=== PATIENT | female | born 1995 | race Caucasian/White ===

== ENCOUNTER 2018-08-15 18:03 | Emergency (ER) | payer BC ==
--- NOTE | 2018-08-15 19:27 | ER ---
Nurse's Notes [facility] Name: Adrianna Lew Age: 22 yrs Sex: Female : 1995 Arrival Date: 08/15/2018 Time: 18:05 Bed Treatment Private MD: Ray Farnsworth Diagnosis: Dysuria Presentation: 08/15 18:22 Presenting complaint: Urinary frequency, burning with urination, and suprapubic pain x hb 2 days. Transition of care: patient was not received from another setting of care. Onset of symptoms was August 14, 2018. Risk Assessment: Do you want to hurt yourself or someone else? Patient reports no desire to harm self or others. Care prior to arrival: None. 18:22 Method Of Arrival: Ambulatory hb 18:22 Acuity: DEEPAK 4 hb 19:42 Initial Sepsis Screen: Does the patient meet any 2 criteria? No. Patient's initial ak1 sepsis screen is negative. Does the patient have a suspected source of infection? No. Patient's initial sepsis screen is negative. Triage Assessment: 19:41 General: Appears in no apparent distress. Behavior is calm, cooperative. Pain: ak1 Complains of pain in burning with urination. EENT: No signs and/or symptoms were reported regarding the EENT system. Neuro: No deficits noted. Cardiovascular: No deficits noted. Respiratory: No deficits noted. GI: No signs and/or symptoms were reported involving the gastrointestinal system. : Reports burning with urination, urinary frequency. Derm: No signs and/or symptoms reported regarding the dermatologic system. Musculoskeletal: No signs and/or symptoms reported regarding the musculoskeletal system. 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 - Social history:: Smoking status: Patient/guardian denies using tobacco. - Ebola Screening: : No symptoms or risks identified at this time. Screenin:41 Abuse screen: Denies threats or abuse. Denies injuries from another. Nutritional ak1 screening: No deficits noted. Tuberculosis screening: No symptoms or risk factors identified. Fall Risk None identified. Vital Signs: 18:23 BP 142 / 85; Pulse 77; Resp 16; Temp 98.5; Pulse Ox 100% on R/A; Pain 8/10; hb ED Course: 18:05 Patient arrived in ED. as 18:05 Ray Farnsworth MD is Private Physician. as 18:07 Dorothea Wadsworth FNP-C is [facility]. snw 18:08 Flako Temple MD is Attending Physician. snw 18:23 Triage completed. hb 18:23 Arm band placed on. hb 19:24 Vane Sorenson, RN is Primary Nurse. ak1 19:24 Urine Culture Sent. ak1 19:24 Urine Microscopic Only Sent. ak1 19:26 Akil Coelho MD is Referral Physician. snw 19:42 Patient has correct armband on for positive identification. Call light in reach. Side ak1 rails up X 1. 19:42 No provider procedures requiring assistance completed. Patient did not have IV access ak1 during this emergency room visit. Administered Medications: No medications were administered Outcome: 19:26 Discharge ordered by MD. snw 19:42 Discharged to home ambulatory. ak1 19:42 Condition: good 19:42 Discharge instructions given to patient, Instructed on discharge instructions, follow up and referral plans. no drinking with medication, no driving heavy equipment, medication usage, safe sex practices, control, Demonstrated understanding of instructions, follow-up care, medications, Prescriptions given X 3. 19:43 Patient left the ED. ak1 Addendum: 08/18/2018 07:31 Addendum: Culture Results: Positive urine culture. No further action required. Bacteria s s sensitive to prescribed antibiotic. Signatures: Dorothea Wadsworth FNP-C HEAD OF HUMAN RESOURCES-[facility] Gifty Doe Shelby, RN RN Vane Sorenson, MAURI RN ak1 Breonna Bergman RN RN
--- NOTE | 2018-08-15 19:27 | EDPHYS ---
Physician Documentation [facility] Name: Adrianna Lew Age: 22 yrs Sex: Female : 1995 Arrival Date: 08/15/2018 Time: 18:05 Bed Treatment Private MD: Ray Farnsworth ED Physician Flako Temple HPI: 08/15 20:06 This 22 yrs old Female presents to ER via Ambulatory with complaints of snw Urinary Problem. 20:06 The patient presents with urinary symptoms, dysuria, frequency, urgency. Onset: The snw symptoms/episode began/occurred suddenly, 3 day(s) ago, and became worse. Associated signs and symptoms: Pertinent positives: dysuria, Pertinent negatives: fever, back pain, flank pain. Severity of symptoms: At their worst the symptoms were moderate. The patient has experienced similar episodes in the past, chronically, has seen Dr. Coelho in the past re: multiple UTI's. Last UTI in April 2018. 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 - Social history:: Smoking status: Patient/guardian denies using tobacco. - Ebola Screening: : No symptoms or risks identified at this time. ROS: 20:05 Constitutional: Negative for fever, chills, and weight loss, Eyes: Negative for injury, snw pain, redness, and discharge, ENT: Negative for injury, pain, and discharge, Neck: Negative for injury, pain, and swelling, Cardiovascular: Negative for chest pain, palpitations, and edema, Respiratory: Negative for shortness of breath, cough, wheezing, and pleuritic chest pain, Abdomen/GI: Negative for abdominal pain, nausea, vomiting, diarrhea, and constipation, Back: Negative for injury and pain, MS/Extremity: Negative for injury and deformity, Skin: Negative for injury, rash, and discoloration, Neuro: Negative for headache, weakness, numbness, tingling, and seizure. 20:05 : Positive for urinary symptoms, small amounts, burning with urination, of the groin. Exam: 20:05 Constitutional: This is a well developed, well nourished patient who is awake, alert, snw and in no acute distress. Head/Face: Normocephalic, atraumatic. Eyes: Pupils equal round and reactive to light, extra-ocular motions intact. Lids and lashes normal. Conjunctiva and sclera are non-icteric and not injected. Cornea within normal limits. Periorbital areas with no swelling, redness, or edema. ENT: Nares patent. No nasal discharge, no septal abnormalities noted. Tympanic membranes are normal and external auditory canals are clear. Oropharynx with no redness, swelling, or masses, exudates, or evidence of obstruction, uvula midline. Mucous membranes moist. Neck: Trachea midline, no thyromegaly or masses palpated, and no cervical lymphadenopathy. Supple, full range of motion without nuchal rigidity, or vertebral point tenderness. No Meningismus. Chest/axilla: Normal chest wall appearance and motion. Nontender with no deformity. No lesions are appreciated. Cardiovascular: Regular rate and rhythm with a normal S1 and S2. No gallops, murmurs, or rubs. Normal PMI, no JVD. No pulse deficits. Respiratory: Lungs have equal breath sounds bilaterally, clear to auscultation and percussion. No rales, rhonchi or wheezes noted. No increased work of breathing, no retractions or nasal flaring. Abdomen/GI: Soft, non-tender, with normal bowel sounds. No distension or tympany. No guarding or rebound. No evidence of tenderness throughout. Back: No spinal tenderness. No costovertebral tenderness. Full range of motion. Skin: Warm, dry with normal turgor. Normal color with no rashes, no lesions, and no evidence of cellulitis. MS/ Extremity: Pulses equal, no cyanosis. Neurovascular intact. Full, normal range of motion. Neuro: Awake and alert, GCS 15, oriented to person, place, time, and situation. Cranial nerves II-XII grossly intact. Motor strength 5/5 in all extremities. Sensory grossly intact. Cerebellar exam normal. Normal gait. Psych: Awake, alert, with orientation to person, place and time. Behavior, mood, and affect are within normal limits. Vital Signs: 18:23 BP 142 / 85; Pulse 77; Resp 16; Temp 98.5; Pulse Ox 100% on R/A; Pain 8/10; hb MDM: 19:08 Patient medically screened. snw 20:07 Data reviewed: vital signs, nurses notes. Data interpreted: Pulse oximetry: on room air snw is 100 %. Interpretation: normal. Counseling: I had a detailed discussion with the patient and/or guardian regarding: the historical points, exam findings, and any diagnostic results supporting the discharge/admit diagnosis, lab results, the need for outpatient follow up, to return to the emergency department if symptoms worsen or persist or if there are any questions or concerns that arise at home. Special discussion: I have referred the patient to see his PCP for further evaluation of high blood pressure. Based on the history and exam findings, there is no indication for further emergent testing or inpatient evaluation. I discussed with the patient/guardian the need to see the urologist for further evaluation of the symptoms. 08/15 19:07 Order name: Urine Culture snw 08/15 19:07 Order name: Urine Microscopic Only snw 08/15 19:07 Order name: Urine Test (obtain specimen); Complete Time: 19:24 snw 08/15 19:07 Order name: Urine Dipstick-Ancillary (obtain specimen); Complete Time: 19:24 snw 08/15 19:31 Order name: Urine Dipstick--Ancillary (enter results) ms 08/15 19:31 Order name: Urine --Ancillary (enter results) ms Administered Medications: No medications were administered Disposition: 08/16 08:00 Co-signature as Attending Physician, Flako Temple MD I agree with the assessment and kavita plan of care. Disposition: 08/15/18 19:26 Discharged to Home. Impression: Dysuria. - Condition is Stable. - Discharge Instructions: Dysuria, Hypertension, Urinary Tract Infection, Adult, Urinary Frequency, Adult. - Prescriptions for Macrobid 100 mg Oral Capsule - take 1 capsule by ORAL route every 12 hours for 10 days; 20 capsule. Fluconazole 150 mg Oral Tablet - take 1 tablet by ORAL route once wkly; 2 tablet. Bactrim DS 800- 160 mg Oral Tablet - take 1 tablet by ORAL route every 12 hours for 10 days; 20 tablet. - Work release form, Medication Reconciliation Form, Thank You Letter, Antibiotic Education, Prescription Opioid Use form. - Follow up: Akil Coelho MD; When: 2 - 3 days; Reason: Recheck today's complaints, Continuance of care, Re-evaluation by your physician. Signatures: Dispatcher [employer] Flako Bass MD MD cha Therrien, Shelly, NEONATAL INTENSIVE CARE UNIT NURSE-C NEONATAL INTENSIVE CARE UNIT NURSE-[facility] Vane Sorenson, RN RN ak1 Breonna Bergman RN RN Corrections: (The following items were deleted from the chart) 08/15 19:43 19:26 08/15/2018 19:26 Discharged to Home. Impression: Dysuria. Condition is Stable. ak1 Forms are Medication Reconciliation Form, Thank You Letter, Antibiotic Education, Prescription Opioid Use. Follow up: Akil Coelho; When: 2 - 3 days; Reason: Recheck today's complaints, Continuance of care, Re-evaluation by your physician. snw
[2018-08-15 20:35] VITALS: BP 142/85; TEMP 98.5; O2SAT 100
[2018-08-15 20:39] LABS: Urine Glucose NEGATIVE (NEG); Urine Specific Gravity >1.030 (1.005-1.030)
[2018-08-15 20:40] LABS: Urine Blood 2+ (NEG); Urine Protein 1+ (NEG); Urine pH 5.5 (5.0-7.0)
[2018-08-15 20:44] LABS: Urine Bacteria 20-50 /HPF (<20); Urine Culture Reflex Order NOT NEEDED; Urine Mucus HEAVY /HPF (NONE SEEN)
== END 2018-08-15 19:43 | disposition home or self-care (01) ==
LOC: ER 18:03
DX: R30.0 Dysuria (principal); Z88.0 Allergy status to penicillin
CPT/HCPCS: 81003; 81015; 81025; 87077; 87086; 87088; 87186; 99283

== ENCOUNTER 2019-08-31 15:41 | Inpatient (IN) | payer BC ==
[~2019-08-31 15:41] MED LIST: BUTORPHANOL 1 MG/ML INJ IV PRN; CARBOPROST TROME 250 MCG/ML IM PRN; METHYLERGONOVINE 0.2MG/ML AMP IM PRN; PROMETHAZINE INJ 25 MG/ML AMP IM PRN; Ringers Lactate 1,000 ML IV PRN
[2019-08-31] MEDS ORDERED: OXYTOCIN/LR 20 UNIT/1,000 ML BAG IV SCH ×2 (16:00→21:00)
[2019-08-31] MEDS ORDERED: Ringers Lactate 1,000 ML IV SCH (16:00)
[2019-08-31 16:27] VITALS: BMI 21.4
[2019-08-31 16:36] LABS: Absolute Lymphocytes (CBC) 2.3 K/uL (0.7-4.9); Basophils % 0.2 % (0-1.3); Hematocrit 37.5 % (36.0-45.0); Lymphocytes % 14.7 % (15.3-44.8); MPV 9.5 fL (7.6-11.3); RBC Red Blood Cell Count 4.28 M/uL (3.86-4.86)
[2019-08-31] MEDS ORDERED: ROPIVACAINE HCL 100 ML IV ONE (17:00)
[2019-08-31] MEDS ORDERED: FENTANYL CITR 100 MCG/2 ML IV ONE (17:00)
[2019-08-31] MEDS ORDERED: ROPIVACAINE HCL 0.2% 20ML AMP IV ONE (17:00)
[2019-08-31] MEDS ORDERED: ROPIVACAINE HCL 0 ML ONE (17:04)
[2019-08-31] MEDS ORDERED: LIDOCAINE 1% MPF 30 ML VIAL ONE (19:48)
[2019-08-31] MEDS ORDERED: BISACODYL 10 MG RECTAL SUPP RECT PRN (20:11)
[2019-08-31] MEDS ORDERED: Oxycodone HCl/Acetaminophen 1 TAB TAB PO PRN ×2 (20:11)
[2019-08-31] MEDS ORDERED: DOCUSATE NA/SENNA CONC 1 TAB PO PRN (20:11)
[2019-08-31] MEDS ORDERED: DIPHENHYDRAMINE 25 MG TAB/CAP PO PRN (20:11)
[2019-08-31] MEDS ORDERED: ACETAMINOPHEN 500 MG TAB PO PRN (20:11)
--- NOTE | 2019-08-31 20:50 | PREOPHP ---
Date of Admission: 08/31/2019 A 23-year-old 2, para 1. A 38 weeks 6 days, according to the last menstrual period. A 39 we eks and 3 or 4 days according to ultrasound. Came in earlier today, thinking she had ruptured membra pili. Nitrazine was negative. Pelvic exam was negative. She was not really bonilla, sent home. Comes back in active labor, 3.5 cm, 70% to almost 80% effaced, vertex, well applied at almost 0 stat ion. Bonilla regularly every 2 minutes during observation. Rupture of membranes occurred, clear fluid. Rh positive, immune to Rubella. Negative beta strep screen. Patient is trying natural chil dbirth. Doing quite well at this time. If she does not make progress in the next couple of hours, w e will add some Pitocin augmentation but right now, we will let the labor progresses on its own. Cayla torres labor talk. MARY/MARINO Voice ID: [id number]
--- NOTE | 2019-09-01 01:09 | OP ---
Surgeon: Bhavik Jose MD History: This is a 23-year-old 2, para 1, 38 weeks 6 days by LMP. Last menstrual period 39 plus 3 by first ultrasound, had been seen earlier in the day with possible rupture of membranes, was not in labor, no rupture of membranes, was sent home, came back in active labor. During assessment f or the labor, she ruptured membranes, clear fluid, was admitted, had epidural anesthesia established at approximately 4 cm went rapidly to complete second stage of 20 to 25 minutes estimate. Estimated 7-pound male infant, spontaneous vaginal delivery. Two small first-degree lacerations on either side of the introitus, sutured with 2-0 chromic. Local infiltration was anticipated, but epidural is wor kiersten well and no local was needed. Simms delivery of the placenta. Estimated blood loss 200 mL or less. Rh positive, immune to Rubella. Negative beta strep screen. Tolerated all procedures well. Final Diagnoses: Term intrauterine 38 weeks 6 days by last menstrual period, spontaneous r upture of membranes, vaginal delivery, epidural anesthesia. MARY/MARINO Voice ID: [id number] Report ID: [id number]
[2019-09-01] MEDS: IBUPROFEN 200 MG TAB PO PRN ×2 (05:30→14:10)
--- NOTE | 2019-09-01 08:15 | DS ---
A 23-year-old 2, para 1, 38 weeks 6 days, came in, in active labor. Spontaneous rupture of m embranes during assessment. The patient went to a very active labor, had epidural anesthesia. Secon d stage of about 20 minutes, delivered a 7-pound 8-ounce male , Apgars 9 and 9. Two small firs t-degree laceration sutured with 2-0 chromic. Simms delivery of the placenta. Less than 200 mL blo od loss. Rh positive, immune to Rubella. Negative beta strep screen. ; afebrile, ambulat ing and voiding. No post epidural problems. Will be dismissed either later today or early tomorrow morning to report back to my office in 6 weeks for followup, to report any temperature elevation of 1 00 degrees or greater, severe pain, heavy bleeding, or any other type of abnormalities. Requests no analgesics on dismissal. She has had her Tdap immunization. She has no post epidural problems. Final Diagnoses: Intrauterine gestation, 38 weeks 6 days, spontaneous labor, spontaneous rupture of membranes, vaginal delivery, epidural anesthesia. MARY/MARINO Voice ID: [id number] Report ID: [id number]
[2019-09-01 20:45] VITALS: BP 125/82; TEMP 98.1
[2019-09-01 21:48] LABS: RPR (Rapid Plasma Reagin) NON-REACT (NON-REACT)
[2019-09-02] MEDS ORDERED: Ringers Lactate 3,000 ML IV ONE (19:46)
[2019-09-06 02:07] LABS: HBsAG Nonreactive (Nonreactive)
== END 2019-09-01 22:20 | disposition home or self-care (01) | DRG 807 ==
LOC: 2ND-WC 15:41
PROVIDERS: ADMIT Specialist; ATTEND Specialist
PROC: 10E0XZZ Delivery of Products of Conception, External Approach (ICD-10-PCS; principal; 2019-08-31)
PROC: 0HQ9XZZ Repair Perineum Skin, External Approach (ICD-10-PCS; 2019-08-31)
PROC: 00HU33Z Insertion of Infusion Device into Spinal Canal, Percutaneous Approach (ICD-10-PCS; 2019-08-31)
DX: O70.0 First degree perineal laceration during delivery (principal); Z37.0 Single live birth; Z3A.38 38 weeks gestation of pregnancy
CPT/HCPCS: 36415; 85025; 86592; 86850; 86900; 86901; 87340; J2210; J2590; J2795; J3010

== ENCOUNTER 2021-06-19 08:08 | Emergency (ER) | payer BC, OTHER ==
[2021-06-19 08:47] LABS: Urine Blood Trace-lysed (Negative); Urine Glucose Negative (Negative); Urine Protein Trace (Negative); Urine Specific Gravity >=1.030 (1.005-1.030); Urine pH 5.5 (5.0-7.0)
[2021-06-19 09:11] LABS: Urine Bacteria 20-50 /HPF (<20); Urine Mucus 2+ /HPF (NONE SEEN)
--- NOTE | 2021-06-19 10:05 | ER ---
Nurse's Notes [facility] Name: Adrianna Lew Age: 25 yrs Sex: Female : 1995 Arrival Date: 06/19/2021 Time: 08:10 Bed Waiting Private MD: Diagnosis: Acute upper respiratory infection, unspecified;UTI/ Urinary tract infection, site not specified Presentation: 06/19 08:26 Chief complaint: Patient states: congestion, cough, fever, diarrhea, sore throat x 3 vg1 days. Coronavirus screen: Vaccine status: Patient reports being unvaccinated. Client denies travel out of the [place] in the last 14 days. Client presents with at least one sign or symptom that may indicate coronavirus-19. Standard/surgical mask placed on the client. Ebola Screen: Patient negative for fever greater than or equal to 101.5 degrees Fahrenheit, and additional compatible Ebola Virus Disease symptoms. Initial Sepsis Screen: Does the patient meet any 2 criteria? No. Patient's initial sepsis screen is negative. Does the patient have a suspected source of infection? No. Patient's initial sepsis screen is negative. Risk Assessment: Do you want to hurt yourself or someone else? Patient reports no desire to harm self or others. Onset of symptoms was June 17, 2021. 08:26 Method Of Arrival: Ambulatory vg1 08:26 Acuity: DEEPAK 4 vg1 Triage Assessment: 08:27 General: Appears in no apparent distress. comfortable, Behavior is calm, cooperative. vg1 Pain: Complains of pain in throat and lower back Pain currently is 5 out of 10 on a pain scale. Respiratory: Airway is patent Respiratory effort is even, unlabored, Breath sounds are clear bilaterally. ORCHARD HAND: 08:27 LMP 05/20/2021 vg1 Historical: - Allergies: 08:27 Amoxicillin; vg1 - Home Meds: 08:27 control pills [Active]; vg1 - PMHx: 08:27 None; vg1 - PSHx: 08:27 None; vg1 - Immunization history:: Client reports having NOT received the Covid vaccine. - Social history:: Smoking status: Patient denies any tobacco usage or history of. Screenin:49 Abuse screen: Denies threats or abuse. Denies injuries from another. Nutritional jl7 screening: No deficits noted. Tuberculosis screening: No symptoms or risk factors identified. Fall Risk None identified. Assessment: 08:49 General: Appears in no apparent distress. uncomfortable, Behavior is calm, cooperative, jl7 appropriate for age. Pain: Complains of pain in back Pain currently is 5 out of 10 on a pain scale. Neuro: Level of Consciousness is awake, alert, obeys commands, Oriented to person, place, time, situation. Cardiovascular: Patient's skin is warm and dry. Respiratory: Airway is patent Respiratory effort is even, unlabored, Respiratory pattern is regular, symmetrical, not auscultated. Derm: Skin is pink, warm \T\ dry. Vital Signs: 08:26 BP 142 / 89; Pulse 100; Resp 16; Temp 99.0(O); Pulse Ox 100% ; Weight 54.43 kg; Height vg1 5 ft. 4 in. (162.56 cm); Pain 5/10; 08:26 Body Mass Index 20.60 (54.43 kg, 162.56 cm) vg1 ED Course: 08:10 Patient arrived in ED. am2 08:15 Nima Roman MD is Attending Physician. kdr 08:17 Flako Turner PA is PHCP. cp 08:27 Triage completed. vg1 08:27 Arm band placed on. vg1 08:49 Ana María Pedro RN is Primary Nurse. jl7 08:49 Patient has correct armband on for positive identification. jl7 08:49 Urine collected: clean catch specimen, cloudy, COVID swab sent to lab. Flu and/or RSV jl7 swab sent to lab. 08:51 Patient placed in waiting room, Patient notified of wait time. jl7 10:28 No provider procedures requiring assistance completed. Patient did not have IV access jl7 during this emergency room visit. Administered Medications: No medications were administered Outcome: 10:04 Discharge ordered by . cp 10:28 Discharged to home ambulatory. jl7 10:28 Condition: stable 10:28 Discharge instructions given to patient, Instructed on discharge instructions, follow up and referral plans. medication usage, Demonstrated understanding of instructions, follow-up care, medications, Prescriptions given X 2. 10:28 Patient left the ED. jl7 Signatures: Nima Roman MD MD kdr Flako Turner PA PA cp Ana María Pedro RN RN jl7 Albania Mckeon am2 Mary Ann Lao, MAURI RN vg1
--- NOTE | 2021-06-19 10:05 | EDPHYS ---
Physician Documentation [facility] Name: Adrianna Lew Age: 25 yrs Sex: Female : 1995 Arrival Date: 06/19/2021 Time: 08:10 Bed Waiting Private MD: ED Physician Nima Roman HPI: 06/19 08:30 This 25 yrs old Female presents to ER via Ambulatory with complaints of Congestion, cp Diarrhea, Sore Throat, Low Back Pain. 08:30 The patient or guardian reports cough, that is intermittent, nasal/chest congestion, cp sore throat. 08:30 Onset: The symptoms/episode began/occurred 3 day(s) ago. Associated signs and symptoms: cp Pertinent positives: diarrhea, sore throat, urinary frequency, low back pain, Pertinent negatives: fever, vomiting. Severity of symptoms: in the emergency department the symptoms are unchanged despite home interventions. PHARMACIST: 08:27 LMP 05/20/2021 vg1 Historical: - Allergies: 08:27 Amoxicillin; vg1 - Home Meds: 08:27 control pills [Active]; vg1 - PMHx: 08:27 None; vg1 - PSHx: 08:27 None; vg1 - Immunization history:: Client reports having NOT received the Covid vaccine. - Social history:: Smoking status: Patient denies any tobacco usage or history of. ROS: 08:35 Constitutional: Negative for chills, fever, poor PO intake. cp 08:35 Eyes: Negative for injury, pain, redness, and discharge. cp 08:35 ENT: Positive for sore throat, Negative for drainage from ear(s), ear pain, difficulty swallowing, difficulty handling secretions. 08:35 Cardiovascular: Negative for chest pain. 08:35 Respiratory: Positive for cough, with no reported sputum, Negative for shortness of breath, wheezing. 08:35 Abdomen/GI: Positive for diarrhea, Negative for abdominal pain, vomiting. 08:35 Back: Positive for pain at rest, of the low back area, Negative for injury or acute deformity. 08:35 : Positive for urinary frequency. 08:35 Neuro: Negative for altered mental status, headache, weakness. 08:35 All other systems are negative. Exam: 08:40 Constitutional: The patient appears in no acute distress, alert, awake, non-toxic, well cp developed, well nourished. 08:40 Head/Face: Normocephalic, atraumatic. cp 08:40 Eyes: Periorbital structures: appear normal, Conjunctiva: normal, no exudate, no injection, Sclera: no appreciated abnormality, Lids and lashes: appear normal, bilaterally. 08:40 ENT: External ear(s): are unremarkable, Ear canal(s): are normal, clear, TM's: dullness, bilaterally, Nose: is normal, Mouth: Lips: moist, Oral mucosa: pink and intact, moist, Posterior pharynx: Airway: no evidence of obstruction, patent, Tonsils: are normal in appearance, erythema, that is mild, exudate, is not appreciated, Voice: is normal. 08:40 Neck: ROM/movement: is normal, is supple, without pain, no range of motions limitations, no meningismus. 08:40 Chest/axilla: Inspection: normal, Palpation: is normal, no crepitus, no tenderness. 08:40 Cardiovascular: Rate: tachycardic, Rhythm: regular. 08:40 Respiratory: the patient does not display signs of respiratory distress, Respirations: normal, no use of accessory muscles, no retractions, labored breathing, is not present, Breath sounds: decreased breath sounds, are not appreciated, stridor, is not appreciated, + upper airway congestion. wheezing: is not appreciated. 08:40 Abdomen/GI: Exam negative for discomfort, distension, guarding, Inspection: abdomen appears normal. 08:40 Back: pain, that is very mild, of the low back area, ROM is normal. 08:40 Neuro: Orientation: to person, place \\T\\ time. Mentation: is normal, Motor: moves all fours, strength is normal, Sensation: is normal. Vital Signs: 08:26 BP 142 / 89; Pulse 100; Resp 16; Temp 99.0(O); Pulse Ox 100% ; Weight 54.43 kg; Height vg1 5 ft. 4 in. (162.56 cm); Pain 5/10; 08:26 Body Mass Index 20.60 (54.43 kg, 162.56 cm) vg1 MDM: 09:00 Differential diagnosis: bronchitis, flu, URI, strep, UTI, COVID-19. cp 10:04 Patient medically screened. cp 10:04 Data reviewed: vital signs, nurses notes, lab test result(s), and as a result, I will cp discharge patient. 10:04 Counseling: I had a detailed discussion with the patient and/or guardian regarding: the cp historical points, exam findings, and any diagnostic results supporting the discharge/admit diagnosis, to return to the emergency department if symptoms worsen or persist or if there are any questions or concerns that arise at home. 10:04 ED course: VSS. Patient appears non-toxic and no signs of respiratory distress. Will cp discharge to home for continued monitoring. 06/19 08:23 Order name: COVID-19/FLU A+B/RSV (Document "Date of Onset" if Symptomatic) cp 06/19 08:23 Order name: Urine Microscopic Only cp 06/19 08:24 Order name: COVID-19/FLU A+B/RSV EDMS 06/19 08:24 Order name: Urine Microscopic Only; Complete Time: 09:59 EDMS 06/19 09:59 Interpretation: Normal except: UWBC 10-20; URBC 5-10; UBACT 20-50; SQEPI 5-10. cp 06/19 08:24 Order name: Strep; Complete Time: 09:59 cp 06/19 08:46 Order name: Urine Dipstick-Ancillary; Complete Time: 09:59 EDMS 06/19 09:59 Interpretation: Normal except: UBLD Trace-lysed; UPROT Trace; UESTR 1+. cp 06/19 08:23 Order name: Urine Dipstick-Ancillary (obtain specimen); Complete Time: 10:25 cp 06/19 08:23 Order name: Urine Test (obtain specimen); Complete Time: 10:25 cp 06/19 08:50 Order name: Urine --Ancillary (enter results); Complete Time: 09:59 dh4 06/19 09:20 Order name: Urine Culture EDMS 06/19 09:53 Order name: Throat Culture EDMS Administered Medications: No medications were administered Disposition: 06/20 08:11 Co-signature as Attending Physician, Nima Roman MD I agree with the assessment and kdr plan of care. Disposition Summary: 06/19/21 10:04 Discharge Ordered Location: Home cp Problem: new cp Symptoms: are unchanged cp Condition: Stable cp Diagnosis - Acute upper respiratory infection, unspecified cp - UTI/ Urinary tract infection, site not specified cp Followup: cp - With: Private Physician - When: 2 - 3 days - Reason: Worsening of condition Discharge Instructions: - Discharge Summary Sheet cp - Upper Respiratory Infection, Adult cp - Urinary Tract Infection, Adult cp - Cool Mist Vaporizer cp Forms: - Medication Reconciliation Form cp - Thank You Letter cp - Antibiotic Education cp - Prescription Opioid Use cp - Work release form mh5 Prescriptions: - Tessalon Perles 100 mg Oral Capsule - take 1 capsule by ORAL route every 8 hours As needed; 15 capsule; Refills: 0, cp Product Selection Permitted - Bactrim DS 800-160 mg Oral Tablet - take 1 tablet by ORAL route every 12 hours for 7 days; 14 tablet; Refills: 0, cp Product Selection Permitted Signatures: Dispatcher [employer] Nima Pinedo MD MD kdr Page, Corey, PA PA cp Garcia, Victoria, RN RN vg1
[2021-06-19 10:34] VITALS: BP 142/89; TEMP 99; O2SAT 100
[2021-06-19 10:38] LABS: SARS-COV-2 RT PCR NEGATIVE (NEGATIVE)
== END 2021-06-19 10:28 | disposition home or self-care (01) ==
LOC: ER 08:08
DX: J06.9 Acute upper respiratory infection, unspecified (principal); N39.0 Urinary tract infection, site not specified; Z88.1 Allergy status to other antibiotic agents; Z20.822 Contact with and (suspected) exposure to COVID-19
CPT/HCPCS: 87070; 87086; 81025; 87081; 0241U; 99283; 81003; 81015; 87088